=== PATIENT | female | born 1975 | race Native Hawaiian/Other Pacific Islander ===

== ENCOUNTER 2021-10-26 17:36 | Emergency (ER) | payer OTHER ==
[~2021-10-26] VITALS: Ht 160 cm; Wt 113.4 kg
[2021-10-26 18:50] LABS: PLATELET COUNT 269 K/uL (152-353)
[2021-10-26 18:51] LABS: POTASSIUM 4.2 mmol/L (3.6-5.2)
[2021-10-26 19:16] LABS: PARTIAL THROMBOPLASTIN TIME 19.9 SECONDS (24.5-33.6)
[2021-10-26 19:55] VITALS: BP 178/95; TEMP 98.2
== END 2021-10-26 19:55 | disposition short-term general hospital (02) ==
LOC: ED 17:36
PROVIDERS: Hospitalist
DX: I21.4 Non-ST elevation (NSTEMI) myocardial infarction (principal); R77.8 Other specified abnormalities of plasma proteins; I20.8 Other forms of angina pectoris; Z11.52 Encounter for screening for COVID-19
CPT/HCPCS: 80053; 82550; 83880; 84484; 85008; 85027; 85610; 85730; 87635; 93005; 96374; 99285; J2405; U0003